=== PATIENT | female | born 1950 | race Native Hawaiian/Other Pacific Islander ===

== ENCOUNTER 2020-05-14 09:36 | Outpatient (CLI) | payer OTHER | END 2020-05-14 19:32 | disposition home or self-care (01) | LOC: MAMMO 09:36 | PROVIDERS: ATTEND Nurse Practitioner Family | DX: Z12.31 Encounter for screening mammogram for malignant neoplasm of breast (principal) ==

== ENCOUNTER 2020-06-01 10:18 | Outpatient (CLI) | payer OTHER | END 2020-06-01 19:12 | disposition home or self-care (01) | LOC: US 10:18 | PROVIDERS: ATTEND Registered Nurse | DX: M79.605 Pain in left leg (principal) ==

== ENCOUNTER 2020-12-30 10:23 | Outpatient (CLI) | payer OTHER | END 2020-12-30 20:42 | disposition home or self-care (01) | LOC: RAD 10:23 | PROVIDERS: ATTEND Registered Nurse | DX: M79.672 Pain in left foot (principal) ==

== ENCOUNTER 2021-02-05 08:07 | Outpatient (CLI) | payer OTHER | END 2021-02-05 19:24 | disposition home or self-care (01) | LOC: CT 08:07 | PROVIDERS: ATTEND Registered Nurse | DX: K44.9 Diaphragmatic hernia without obstruction or gangrene (principal); Z82.49 Family history of ischemic heart disease and other diseases of the circulatory system | CPT/HCPCS: 36415; 82565; 84520; Q9963 ==

== ENCOUNTER 2022-06-13 14:25 | Outpatient (CLI) | payer OTHER | END 2022-06-13 19:01 | disposition home or self-care (01) | LOC: RAD 14:25 | PROVIDERS: ATTEND Nurse Practitioner Family | DX: M79.672 Pain in left foot (principal) ==